=== PATIENT | male | born 1995 | race Caucasian/White ===

== ENCOUNTER 2018-06-15 14:57 | Emergency (ER) | payer SELFPAY ==
[~2018-06-15] VITALS: Ht 167.6 cm; Wt 81.7 kg
[~2018-06-15 14:57] MED LIST: ACET325; AMOX250CH PO; BENZ100A PO; CODGUAEL PO; CRUTCH USE; MECL25 PO; PROCODE120 PO
[2018-06-15 16:00] LABS: BASOPHILS ABSOLUTE AUTO 0.02 K/mm3 (0.00-0.23); BASOPHILS PERCENT AUTO 1 % (0-2); EOSINOPHILS PERCENT AUTO 3 % (0-6); Hemoglobin 14.8 g/dL (13.5-17.5); IMMATURE GRAN ABSOLUTE AUTO 0.01 K/mm3 (0.00-0.10); IMMATURE GRAN PERCENT AUTO 0 % (0-1); LYMPHOCYTES ABSOLUTE AUTO 1.52 K/mm3 (0.84-5.20); LYMPHOCYTES PERCENT AUTO 39 % (21-46); MONOCYTES ABSOLUTE AUTO 0.59 K/mm3 (0.16-1.47); MONOCYTES PERCENT AUTO 15 % (4-13); Mean Corpuscular HGB Conc 34.4 g/dL (31.5-36.5); Mean Corpuscular Volume 87 fL (80-100); Mean Platelet Volume 9.7 fL (9.1-12.4); NEUTROPHILS ABSOLUTE AUTO 1.64 K/mm3 (1.96-9.15); NEUTROPHILS PERCENT AUTO 42 % (41-73); Platelet Count 233 K/mm3 (150-400); RDW Coefficient Variation 12.6 % (11.7-14.2); RDW Standard Deviation 39.8 fL (35.1-46.3); Red Blood Cell Count 4.94 M/mm3 (4.30-5.90); White Blood Cell Count 3.88 K/mm3 (4.00-11.30)
[2018-06-15 16:31] LABS: Alanine Aminotransfer (ALT/SGP 70 U/L (12-78); Albumin, Blood 4.3 g/dL (3.4-5.0); Albumin/Globulin Ratio 1.2 (0.8-1.8); Alk Phos 68 U/L (50-136); Anion Gap 2 mmol/L (6-16); Aspartate Aminotrans (AST/SGOT 28 U/L (12-37); Bilirubin, Total 0.6 mg/dL (0.1-1.0); Blood Urea Nitrogen 10 mg/dL (8-24); Bun/Creatinine Ratio 13.1 (12.0-20.0); CO2, Blood 28 mmol/L (21-32); Calcium, Blood 8.9 mg/dL (8.5-10.1); Chloride, Blood 108 mmol/L (98-108); Creatinine, Blood 0.76 mg/dL (0.60-1.20); Globulin, Blood 3.7 g/dL (2.2-4.0); Glomerular Filtration Rate >60 (60-); Glucose, Blood 94 mg/dL (70-99); Potassium, Blood 3.9 mmol/L (3.5-5.5); Sodium, Blood 138 mmol/L (136-145)
[2018-06-15 19:34] LABS: Source, Urine Clean Catch
[2018-06-15 19:37] LABS: Appearance, Urine Clear (Clear); Bilirubin, Urine Neg (Neg); Blood, Urine Neg (Neg); Color, Urine Yellow (P-Yellow); Glucose Qualitative, Urine Neg (Neg); Ketones, Urine Neg (Neg); Leukocyte Esterase, Urine Neg (Neg); Nitrite, Urine Neg (Neg); Protein, Urine Neg (Neg); Urobilinogen, Urine NORM (Normal)
[2018-06-15 20:17] LABS: U Amphetamine Screen Not Detected; U Barbituate Screen Not Detected; U Benzodiazapine Screen Not Detected; U Buprenorphine Screen Not Detected; U Cannabinoids Screen DETECTED; U Cocaine Screen Not Detected; U Methadone Screen Not Detected; U Methamphetamine Screen Not Detected; U Opiates Screen Not Detected; U Oxycodone Screen Not Detected; U Phencyclidine Screen Not Detected; U Propoxyphene Screen Not Detected
== END 2018-06-15 21:19 | disposition home or self-care (01) ==
LOC: ER 14:57
PROVIDERS: Emergency Medicine; Physician Assistant
DX: R56.9 Unspecified convulsions (principal)
CPT/HCPCS: 36415; 80053; 81003; 85025; 93005; 93010; 99284-25

== ENCOUNTER 2020-08-27 01:51 | Emergency (ER) | payer OTHER, BC | END 2020-08-27 04:05 | disposition home or self-care (01) | LOC: ER 01:51 | DX: R00.2 Palpitations (principal); Z79.899 Other long term (current) drug therapy ==

== ENCOUNTER 2020-10-21 07:38 | Emergency (ER) | payer BC, OTHER ==
[~2020-10-21] VITALS: Ht 167.6 cm; Wt 81.7 kg
[~2020-10-21 07:38] MED LIST changes: +LEVE500 PO
[2020-10-21 08:45] LABS: Chloride (POC) 106 mmol/L (98-108); Creatinine (POC) 0.7 mg/dL (0.8-1.3); Glucose (ISTAT POC) 118 mg/dL (70-99); Potassium (POC) 4.3 mmol/L (3.5-5.5); Sodium (POC) 139 mmol/L (135-148); Total CO2 (POC) 17 mmol/L (21-32)
== END 2020-10-21 10:20 | disposition home or self-care (01) ==
LOC: ER 07:38
PROVIDERS: Emergency Medicine
DX: G40.919 Epilepsy, unspecified, intractable, without status epilepticus (principal); Z79.899 Other long term (current) drug therapy
CPT/HCPCS: 36415; 80047; 85014; 96365; 99284-25; J1953

== ENCOUNTER 2021-11-08 10:55 | Emergency (ER) | payer OTHER ==
[~2021-11-08] VITALS: Ht 167.6 cm; Wt 93.0 kg
[2021-11-08] MEDS ORDERED: OXCA150 PO (11:40)
[2021-11-08] MEDS ORDERED: Norco 7.5-3251 EACH PO (13:23)
== END 2021-11-08 13:47 | disposition home or self-care (01) ==
LOC: ER 10:55
DX: S82.841A Displaced bimalleolar fracture of right lower leg, initial encounter for closed fracture (principal); G40.909 Epilepsy, unspecified, not intractable, without status epilepticus; Z79.899 Other long term (current) drug therapy; W01.0XXA Fall on same level from slipping, tripping and stumbling without subsequent striking against object, initial encounter; Y93.64 Activity, baseball
CPT/HCPCS: 27810; 73600; 73610; 96374-59; 96375-59; 99283-25; A9270; J1170; J2405

== ENCOUNTER 2021-11-13 07:35 | Day surgery (SDC) | payer OTHER ==
[~2021-11-13] VITALS: Ht 167.6 cm; Wt 84.3 kg
[~2021-11-13 07:35] MED LIST changes: +Norco 7.5-3251 EACH PO; +OXCA150 PO
--- NOTE | 2021-11-13 09:25 | NUR ---
11/13/21 0925 Janice Braxton [facility]UISING & [facility]. DR ANDERS NOTIFIED. BUPIVACAINE 0.25% MIXED 1:1 W/ BUPIVACAINE 0.75% TO MAKE BUPIVACAINE 0.5%. 30 MLS OF BUPIVACAINE 0.5% MIXED W/ EPI 0.15ML (1MG/ML) PER ORDER TO MAKE BUPIVACIANE 0.5% 1:200,000 FOR INJECTION AT OPSITE BY DR ANDERS. ALL 30 MLS INJECTED.
--- NOTE | 2021-11-13 10:13 | NUR ---
11/13/21 1013 Kassidy Kaye PT. WITH GOOD CAP REFILL TO RIGHT TOES.
--- NOTE | 2021-11-13 10:49 | NUR ---
11/13/21 1049 Kassidy Kaye PT. STILL IN BED. PT. HAVING PAIN TO RIGHT ANKLE, PT. BEING MEDICATED PER DR. JIN. PT. RIGHT ANKLE ELEVATED UP ON 2 PILLOWS WITH ICE BEHIND THE KNEE. PT. VERBALIZES ELEVATION MADE IN DIFFERENCE FOR EASING PAIN.
== END 2021-11-13 12:18 | disposition home or self-care (01) ==
LOC: ORSCSDS 07:35
PROVIDERS: Podiatrist Foot & Ankle Surgery
PROC: 0QSJ04Z Reposition Right Fibula with Internal Fixation Device, Open Approach (ICD-10-PCS; principal; 2021-11-13 09:00)
DX: S82.841A Displaced bimalleolar fracture of right lower leg, initial encounter for closed fracture (principal); G40.909 Epilepsy, unspecified, not intractable, without status epilepticus; Z79.899 Other long term (current) drug therapy
CPT/HCPCS: C1713; J0171; J0690; J1100; J2250; J2405; J2704; J3010; J7120

== ENCOUNTER 2024-09-16 12:25 | Emergency (ER) | payer OTHER ==
[~2024-09-16] VITALS: Ht 170.2 cm; Wt 74.8 kg
[2024-09-16] MEDS ORDERED: NS 1,000 ML IV SCH (13:05)
[2024-09-16] MEDS ORDERED: LEVE500 PO (13:27)
[2024-09-16] MEDS ORDERED: OXCARBAZEPINE150 M1 PO (13:27)
[2024-09-16 13:36] LABS: BASOPHILS ABSOLUTE AUTO 0.01 K/mm3 (0.00-0.23); BASOPHILS PERCENT AUTO 0 % (0-2); EOSINOPHILS ABSOLUTE AUTO 0.02 K/mm3 (0.00-0.68); EOSINOPHILS PERCENT AUTO 0 % (0-6); Hematocrit 40.1 % (37.0-53.0); Hemoglobin 14.4 g/dL (13.5-17.5); IMMATURE GRAN ABSOLUTE AUTO 0.01 K/mm3 (0.00-0.10); IMMATURE GRAN PERCENT AUTO 0 % (0-1); LYMPHOCYTES ABSOLUTE AUTO 0.47 K/mm3 (0.84-5.20); LYMPHOCYTES PERCENT AUTO 9 % (21-46); MONOCYTES ABSOLUTE AUTO 0.42 K/mm3 (0.16-1.47); MONOCYTES PERCENT AUTO 8 % (4-13); Mean Corpuscular HGB Conc 35.9 g/dL (31.5-36.5); Mean Corpuscular Volume 86 fL (80-100); NEUTROPHILS ABSOLUTE AUTO 4.09 K/mm3 (1.96-9.15); NEUTROPHILS PERCENT AUTO 81 % (41-73); NRBC ABSOLUTE 0.00 K/mm3 (0.00-0.02); NRBC Auto 0.0 /100 WBC (0.0-0.2); Platelet Count 217 K/mm3 (150-400); RDW Coefficient Variation 12.4 % (11.7-14.2); RDW Standard Deviation 38.9 fL (35.1-46.3)
[2024-09-16 14:12] LABS: Alanine Aminotransfer (ALT/SGP 35.0 U/L (12-78); Albumin, Blood 3.9 g/dL (3.4-5.0); Albumin/Globulin Ratio 1.3 (0.8-1.8); Anion Gap 8.0 mmol/L (3-11); Aspartate Aminotrans (AST/SGOT 20.0 U/L (12-37); Bilirubin, Total 0.3 mg/dL (0.1-1.0); Blood Urea Nitrogen 13.0 mg/dL (8-24); CO2, Blood 25.0 mmol/L (21-32); Calcium, Blood 8.6 mg/dL (8.5-10.1); Chloride, Blood 109.0 mmol/L (98-108); Creatinine, Blood 0.8 mg/dL (0.60-1.20); Globulin, Blood 3.1 g/dL (2.2-4.0); Glucose, Blood 130.0 mg/dL (70-99); Potassium, Blood 3.8 mmol/L (3.5-5.5); Sodium, Blood 138.0 mmol/L (136-145); Total Protein, Blood 7.0 g/dL (6.4-8.2)
[2024-09-16] MEDS ORDERED: Ketorolac Tromethamine 30mg Vial IV ONE (14:20)
[2024-09-16 14:45] VITALS: BP 113/65
== END 2024-09-16 14:55 | disposition home or self-care (01) ==
LOC: ER 12:25
PROVIDERS: Emergency Medicine
DX: G40.909 Epilepsy, unspecified, not intractable, without status epilepticus (principal); Z79.899 Other long term (current) drug therapy
CPT/HCPCS: 80053; 85025; J1885; J1953; J7030

== ENCOUNTER 2024-12-13 14:23 | Emergency (ER) | payer OTHER ==
[~2024-12-13] VITALS: Ht 165.1 cm; Wt 79.4 kg
[~2024-12-13 14:23] MED LIST changes: +OXCARBAZEPINE150 M1 PO
[2024-12-13] MEDS ORDERED: Ondansetron HCl 2 MG / ML 2ML Vial IV ONE (14:35)
[2024-12-13] MEDS ORDERED: HYDROmorphone HCl/Pf 1MG SYR IV ONE ×7 (14:35→19:15)
[2024-12-13] MEDS ORDERED: Ketorolac Tromethamine 30mg Vial IV ONE (14:35)
[2024-12-13] MEDS ORDERED: Propofol 10mg/ml 20 ml Vial (Procedural) IV SCH (15:35)
[2024-12-13] MEDS ORDERED: NS 1,000 ML IV ONE (16:04)
[2024-12-13] MEDS ORDERED: HYDROmorphone HCl/Pf 1MG SYR ONE (16:05)
[2024-12-13] MEDS ORDERED: NS 1,000 ML IV SCH (17:20)
[2024-12-13 17:57] VITALS: BP 177/80
[2024-12-13] MEDS ORDERED: OXYC5 PO (19:43)
[2024-12-13] MEDS ORDERED: RX Prepack 6 Tabs Oxycodone 5mg UD ONE (19:45)
== END 2024-12-13 20:06 | disposition home or self-care (01) ==
LOC: ER 14:23
DX: S52.502A Unspecified fracture of the lower end of left radius, initial encounter for closed fracture (principal); S52.501A Unspecified fracture of the lower end of right radius, initial encounter for closed fracture; W11.XXXA Fall on and from ladder, initial encounter
CPT/HCPCS: 70450; 73110; 73200; A9270; J1171; J1885; J2405; J2704; J7030